=== PATIENT | female | born 1935 | race Caucasian/White ===

== ENCOUNTER 2019-09-07 17:49 | Inpatient (IN) | payer MEDICARE, OTHER ==
[~2019-09-07] VITALS: Ht 162.6 cm; Wt 55.0 kg
[2019-09-07 18:23] LABS: BASO % 0.4 % (0.0-2.0); EOS # 0.1 (0.0-0.7); EOS % 0.7 % (0-4.0); GRAN # 4.9 (1.4-6.5); GRAN % 65.6 % (42.2-75.2); HEMATOCRIT 44.3 % (37.0-47.0); HEMOGLOBIN 14.4 g/dl (12.5-16.0); LYMPH % 13.7 % (20.0-51.0); MEAN CELL VOLUME 87 fl (80.0-100.0); MEAN CORPUSCULAR HEMOGLOBIN 28 pg (27.0-31.0); MEAN CORPUSCULAR HGB CONC 33 g/dl (33.0-37.0); MEAN PLATELET VOLUME 10.2 fl (7.4-10.4); MONO # 1.5 (0.1-0.6); MONO % 19.5 % (1.7-9.3); PLATELET COUNT 341 K/mm3 (130-400); REDCELL DISTRIBUTION WIDTH-CV 12.4 % (11.5-14.5)
[2019-09-07 18:37] LABS: ALBUMIN 4.1 gm/dL (3.5-5.0); BILIRUBIN,TOTAL 0.6 mg/dL (0.0-1.0); C-REACTIVE PROTEIN 1.7 mg/dL (0.0-0.9); CALCIUM 8.9 mg/dL (8.4-10.2); CREATININE, serum 1.32 (0.52-1.25); POTASSIUM 4.3 mmol/L (3.4-5.0); TOTAL PROTEIN 7.6 gm/dL (6.4-8.2)
[2019-09-07 19:39] LABS: COLLECTION METHOD CLEAN CATCH
[2019-09-07 19:48] LABS: MUCOUS Present /lpf; PH 5 (5-8); URINE APPEARANCE Cloudy; URINE BACTERIA Rare /hpf; URINE BILIRUBIN Negative (NEGATIVE); URINE BLOOD Negative (NEGATIVE); URINE COLOR Amber; URINE GLUCOSE Negative (NEGATIVE); URINE KETONE 1+ (NEGATIVE); URINE LEUKOCYTE ESTERASE Negative (NEGATIVE); URINE NITRATE Negative (NEGATIVE); URINE PROTEIN(semi-quant) 1+ (NEGATIVE); URINE RBC 0-2 /hpf; URINE UROBILINOGEN Negative (NEGATIVE)
[2019-09-07] MEDS ORDERED: ULTRAM 50MG TAB50 MG (20:30)
--- NOTE | 2019-09-07 21:25 | NUR ---
TO room 347 via gurney from ER. Assessment complete. Oriented to room/policy. Admission orders initiated. Call light in reach. Will monitor.
[2019-09-07 21:28] VITALS: BP 129/41; PULSE 74; TEMP 98.2
[2019-09-07] MEDS ORDERED: MOTRIN 200200 MG/TAB PO (22:38)
[2019-09-07] MEDS ORDERED: PRILOSEC 20MG20 MG PO (22:39)
[2019-09-07 23:26] VITALS: BP 117/42; PULSE 74; TEMP 98.4
[2019-09-08] VITALS (7 sets, daily range): BP systolic 113–126; BP diastolic 42–58; PULSE 74–81; TEMP 97.6–99.1
--- NOTE | 2019-09-08 03:30 | NUR ---
Called with stating she was nausea. Emesis of 100mls dark brown fluid.
--- NOTE | 2019-09-08 04:10 | NUR ---
Emesis of 100mls dark brown liquid. Dr Harvey notified of emesis x2 with new orders to place NG tube to LIS. 16F placed to left [id number] checked with air bolus. Immediate return of 50mls dark brown fluid. Secured to nose with nasal tape. TOlerated well.
[2019-09-08 07:50] LABS: BASO % 0.2 % (0.0-2.0); GRAN # 4.5 (1.4-6.5); GRAN % 75.3 % (42.2-75.2); HEMATOCRIT 39.2 % (37.0-47.0); HEMOGLOBIN 12.5 g/dl (12.5-16.0); LYMPH # 0.6 (1.2-3.4); LYMPH % 9.8 % (20.0-51.0); MEAN CELL VOLUME 89 fl (80.0-100.0); MEAN CORPUSCULAR HEMOGLOBIN 28 pg (27.0-31.0); MEAN CORPUSCULAR HGB CONC 32 g/dl (33.0-37.0); MEAN PLATELET VOLUME 10.9 fl (7.4-10.4); MONO # 0.9 (0.1-0.6); MONO % 14.4 % (1.7-9.3); PLATELET COUNT 314 K/mm3 (130-400); RED BLOOD COUNT 4.43 M/mm3 (4.10-5.30); REDCELL DISTRIBUTION WIDTH-CV 12.7 % (11.5-14.5)
[2019-09-08 08:00] LABS: CALCIUM 8.2 mg/dL (8.4-10.2); CREATININE, serum 0.96 (0.52-1.25); POTASSIUM 4.6 mmol/L (3.4-5.0)
--- NOTE | 2019-09-08 08:00 | NUR ---
Patient resting in bed at this time. Patient rouses easily and is alert and oriented while awake. Patient denies nausea or vomiting, c/o esophogeal pain due to the NG tube. NG tube remains in place with a small amount of green drainage in cannister.
--- NOTE | 2019-09-08 12:32 | NUR ---
Plans to return home with DTR Lacie. . Patient reports that she live is [facility]. Patient reports that her PCP is Dr. France. Patient reports that she seen Mayra Sylvester for her medications but did not give a pharmacy. Patient denies homehealth services. Need to continue to follow for additional information on support and services.
--- NOTE | 2019-09-08 17:13 | NUR ---
Patient resting in bed at this time, remains alert and orented. NG tube remains to LIS, approximately 800 ml of green drainage out during shift. Patient continues to deny nausea or pain. Call light within reach.
--- NOTE | 2019-09-08 20:00 | NUR ---
Report received. Assumed care for sales strategy manager. A&Ox3-Drowsy. Denies nausea/shortness of breath/pain. States she is very tired. NG-16F at 58cm to LIS-left nare-dark brown fluid draining. Denies needs. Call light in reach. will monitor.
[2019-09-09] VITALS (10 sets, daily range): BP systolic 92–119; BP diastolic 45–78; PULSE 66–98; TEMP 97.1–98.6
--- NOTE | 2019-09-09 05:30 | NUR ---
Slept most of this shift. Did have a few ice chips. NG remained to LIS with a total output of 450-green/brown fluid from 1999. Denied nausea/shortness of breath or pain. Voiding without diffiuclty. Call light in reach. Will monitor.
[2019-09-09 06:30] LABS: BASO % 0.5 % (0.0-2.0); EOS # 0.1 (0.0-0.7); GRAN # 4.1 (1.4-6.5); GRAN % 65.7 % (42.2-75.2); LYMPH % 16.5 % (20.0-51.0); MEAN CELL VOLUME 91 fl (80.0-100.0); MEAN CORPUSCULAR HEMOGLOBIN 28 pg (27.0-31.0); MEAN CORPUSCULAR HGB CONC 31 g/dl (33.0-37.0); MEAN PLATELET VOLUME 10.5 fl (7.4-10.4); PLATELET COUNT 280 K/mm3 (130-400); RED BLOOD COUNT 4.29 M/mm3 (4.10-5.30); REDCELL DISTRIBUTION WIDTH-CV 12.9 % (11.5-14.5)
[2019-09-09 06:59] LABS: CALCIUM 8.1 mg/dL (8.4-10.2); CREATININE, serum 0.8 (0.52-1.25); POTASSIUM 4.4 mmol/L (3.4-5.0)
--- NOTE | 2019-09-09 07:30 | NUR ---
Dr Harvey here to see patient.
--- NOTE | 2019-09-09 09:00 | NUR ---
Patient alert and oriented, answers questions appropriately. See assessment. NGT to LIS in left nare, moderate amount of dark brown drainage noted in canister. NGT irrigated with 10ml NS. Abdomen firm, rounded. Bowel sounds tinkling x4 quads. No flatus. No c/o abdominal pain with palpation. No other c/o at this time.
--- NOTE | 2019-09-09 13:22 | NUR ---
Dr Harvey here to see patient.
--- NOTE | 2019-09-09 13:54 | NUR ---
Dr Harvey notified of blood glucose, orders received.
--- NOTE | 2019-09-09 15:50 | NUR ---
Patient to surgery with surgical staff at this time.
--- NOTE | 2019-09-09 18:29 | NUR ---
Returns from surgery at 1740. Assessment unchanged except for abdomen with lap sites x3, edges well approximated, no redness or drainage noted. NGT to LIS. Owen catheter in place and draining clear yellow urine. Post op checks initiated. Post op exercises reviewed with patient.
--- NOTE | 2019-09-09 20:00 | NUR ---
Received report from LASHANDA Ventura. Pt currently resting in bed with call ligth within reach.
--- NOTE | 2019-09-09 20:00 | NUR ---
Received report from LASHANDA Ventura. Pt is currently lying in bed at this time. NG is in place. Pt has her call light within reach and expressing she isn't having any pain at this time.
--- NOTE | 2019-09-09 21:30 | NUR ---
Pt has been resting well in bed. Pt NG tube is still low intermittent suction. There is currently noting in the canister. Pt daughter called to see how pt was doing. Pt was able to talke with her daughter on the phone. Pt is currently resting in bed stated that she isn't having any pain at the time. Pt did state that NG tube was very uncomfortable to her but this has always been uncomfortable. New nasal tape for NG was repalced at this time due to nasal drainage. Pt has her call light within reach and her bed is in lowest position.
[2019-09-10 00:21] VITALS: BP 112/45; PULSE 78; TEMP 98.6
[2019-09-10 04:40] VITALS: BP 105/45; PULSE 75; TEMP 98.9
[2019-09-10 06:54] LABS: CALCIUM 8.2 mg/dL (8.4-10.2); CREATININE, serum 0.69 (0.52-1.25); POTASSIUM 3.9 mmol/L (3.4-5.0)
--- NOTE | 2019-09-10 08:15 | NUR ---
NGT irrigated with 10ml sterile water, immediate 50ml return of gastric drainage noted. NGT to LIS.
--- NOTE | 2019-09-10 08:30 | NUR ---
Patient alert and oriented, answers questions appropriately. See assessment. Abdomen soft, non tender, non distended. Bowel sounds hypoactive x4 quads. No flatus, no bowel movement. Lap sites x3 to abdomen with bandaids CDI. Owen catheter patent and draining clear yellow urine. NGT in place to LIS, no output noted. Post op exercises reviewed wit patient. No c/o pain or discomfort.
--- NOTE | 2019-09-10 08:38 | NUR ---
Reported off to LASHANDA Ventura. Pt is currently resting in bed. New bag of fluids was hung this morning. Pt has her call ligth within reach and her bed is in lowest position.
[2019-09-10 08:45] VITALS: BP 119/46; PULSE 71; TEMP 98.3
--- NOTE | 2019-09-10 11:14 | NUR ---
NGT and crawford catheter removed per drs order at 1100. Dr Harvey here to see patient.
[2019-09-10 12:24] VITALS: BP 117/45; PULSE 73; TEMP 98.4
[2019-09-10 15:19] VITALS: BP 116/51; PULSE 77; TEMP 98.5
--- NOTE | 2019-09-10 19:45 | NUR ---
Report received. Assumed care for staffing analyst. Resting in bed with no c/o pain/shortness of breath/nausea. Has not voided since DC of crawford cath. Bladder scan with 750mls. 3 lap sites to [id number]. +flatus. -BM. Stand by assist to bathroom to try to void. Discussed possible need for straight cath. Verbalizes understanding. Will monitor.
[2019-09-10 20:12] VITALS: BP 141/48; PULSE 77; TEMP 98.9
[2019-09-11 00:33] VITALS: BP 115/50; PULSE 71; TEMP 98.2
--- NOTE | 2019-09-11 03:27 | NUR ---
Up to bathroom at this time. Voided 450mls of clear yellow urine. Medium loose brown BM. Denies pain/nausea/shortness of breath. Call light in reach. Will monitor.
[2019-09-11 04:05] VITALS: BP 124/56; PULSE 72; TEMP 98.2
[2019-09-11 08:05] VITALS: BP 140/72; PULSE 84; TEMP 98
--- NOTE | 2019-09-11 08:44 | NUR ---
Patient resting in bed. Patient ready to get home. Dr. Harvey rounded & progressed her diet, he is wanting her to eat prior to dismissal. Food offered patient has no interest at this time, was willing to drink hot chocolate. Patient abdomen soft & audible bowels. Bandaids CDI. Iv to InT. Will monitor.
--- NOTE | 2019-09-11 10:56 | NUR ---
SW presented the IM form to the patient. The patient understood and signed the form. A copy was provided to the patient and original was placed in the chart. SW revisited the discharge plan with the patient. The patient will be going home at discharge. Her daughter will be staying with her for a while. There are no additional needs at this time.
[2019-09-11 11:30] VITALS: BP 130/58; PULSE 76; TEMP 98.1
--- NOTE | 2019-09-11 15:43 | NUR ---
Patient ready for discharge. rounded. Orders obtained. Patient tolerated her lunch without nausea. We reviewed all discharge paperwork. She denies questions or concerns. Her daughter here to take her home. Patient wheeled down with all belongings.
== END 2019-09-11 15:45 | disposition home or self-care (01) | DRG 336 ==
LOC: COL.ER 17:49 → SURG 20:12
PROVIDERS: Emergency Medicine; ADMIT Surgery
PROC: 0DN84ZZ Release Small Intestine, Percutaneous Endoscopic Approach (ICD-10-PCS; principal; 2019-09-09 15:30)
DX: K56.50 Intestinal adhesions [bands], unspecified as to partial versus complete obstruction (principal); N17.9 Acute kidney failure, unspecified; R18.8 Other ascites; E86.0 Dehydration; Z96.651 Presence of right artificial knee joint; M19.90 Unspecified osteoarthritis, unspecified site; K21.9 Gastro-esophageal reflux disease without esophagitis; D64.9 Anemia, unspecified; E16.2 Hypoglycemia, unspecified; Z90.710 Acquired absence of both cervix and uterus
CPT/HCPCS: A4314; J0330; J0690; J2405; J2704; J3010; J7030; J7042; Q9967